=== PATIENT | male | born 1985 ===

== ENCOUNTER → 2023-09-27 | Outpatient (CLI) | payer OTHER | LOC: LAB SHORT 17:57 → LAB 17:57 | DX: L08.9 Local infection of the skin and subcutaneous tissue, unspecified (principal); L70.0 Acne vulgaris; Z79.899 Other long term (current) drug therapy; L57.8 Other skin changes due to chronic exposure to nonionizing radiation; Z71.89 Other specified counseling | CPT/HCPCS: 87070; 87205 ==